=== PATIENT | male | born 1950 | race Caucasian/White ===

== ENCOUNTER 2020-01-20 14:46 | Emergency (ER) | payer MEDICARE, OTHER ==
[~2020-01-20] VITALS: Ht 185.4 cm; Wt 88.6 kg
[2020-01-20 15:39] LABS: MEAN CORPUSCULAR HEMOGLOBIN 29.3 pg (27.0-33.0); MEAN CORPUSCULAR HGB CONC 33.9 g/dl (32.0-36.5); MEAN CORPUSCULAR VOLUME 86.5 fl (80.0-96.0); RED BLOOD COUNT 2.22 10^6/uL (4.30-6.10)
--- NOTE | 2020-01-20 15:39 | REP ---
PORTABLE CHEST X-RAY: SINGLE VIEW. HISTORY: Syncope/near syncope. No comparison study. FINDINGS: The lungs are well inflated and clear. The pleural angles are sharp. The heart is not enlarged. There is evidence of a small hiatal hernia. Pulmonary vasculature is not increased. No significant bony abnormality. IMPRESSION: Small hiatal hernia suspected. Otherwise no acute disease. Electronically Signed by Brian Ochoa MD 01/20/2020 04:16 P
--- NOTE | 2020-01-20 15:45 | REP ---
CT study of the cervical spine without contrast: History: Injury in a fall. No comparison study. Technique: Helical scanning is acquired and overlapping 2 mm high resolution axial images were generated and reviewed at bone and soft tissue window settings. Coronal and sagittal multiplanar re-formations images are generated. CT findings: There is no evidence of cervical spine element fracture. No skull base fracture is seen. Cervical vertebral body heights are preserved. Alignment is normal. Facet joints are normally aligned bilaterally at each cervical level on multiplanar re-formations images. There is no evidence of intraspinal or paraspinal hematoma. No extra vertebral abnormality is seen. There is a benign hemangioma in the left side of the C7 vertebral body. There are degenerative disc changes at C6-7 C5-6 and to a lesser extent C3-4. Osteoarthritic spurring is seen at the articulation between the dens and the anterior arch of C1. 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 Impression: Degenerative spondylosis changes. Otherwise negative CT study of the cervical spine without contrast. No fracture seen. Electronically Signed by Brian Ochoa MD 01/20/2020 03:37 P
--- NOTE | 2020-01-20 15:46 | REP ---
CT BRAIN WITHOUT CONTRAST: HISTORY: Injury in a fall. 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 Bone window settings demonstrate an intact bony calvarium. Visualized paranasal sinuses are clear. No intraorbital abnormality is appreciated. On soft tissue window settings, the lateral, third, and fourth ventricles are normal in size and position. Main-white differentiation pattern is normal above and below the tentorium. There is no evidence of intracranial hemorrhage. No extra-axial fluid collection is seen. No mass, edema or midline shift is observed. IMPRESSION: No evidence of infarct, mass, or hemorrhage. No skull fracture or intracranial injury seen. Electronically Signed by Brian Ochoa MD 01/20/2020 04:17 P
[2020-01-20 16:02] LABS: INR 1.16; PARTIAL THROMBOPLASTIN TIME 33.3 SECONDS (25.0-38.4); PROTHROMBIN TIME 14.5 SECONDS (11.8-14.0)
[2020-01-20 16:06] LABS: HEMATOCRIT 19.2 % (42.0-52.0); WHITE BLOOD COUNT 143.6 10^3/uL (4.0-10.0)
[2020-01-20 16:14] LABS: ALBUMIN 3.4 GM/DL (3.2-5.2); ALT/SGPT 24 U/L (12-78); BILIRUBIN,DIRECT 0.1 MG/DL (0.0-0.2); BILIRUBIN,TOTAL 0.4 MG/DL (0.2-1.0); BLOOD UREA NITROGEN 19 MG/DL (7-18); CALCIUM LEVEL 8.3 MG/DL (8.8-10.2); CARBON DIOXIDE LEVEL 27 MEQ/L (21-32); CHLORIDE LEVEL 107 MEQ/L (98-107); CK-MB VALUE MASS < 1.0 NG/ML (<3.6); CPK CREATINE PHOSPHOKINASE 334 U/L (39-308); CREATININE FOR GFR 1.39 MG/DL (0.70-1.30); GLOMERULAR FILTRATION RATE 54.3 (>49); GLUCOSE, FASTING 139 MG/DL (70-100); SODIUM LEVEL 141 MEQ/L (136-145); TOTAL PROTEIN 6.2 GM/DL (6.4-8.2); TROPONIN I < 0.02 NG/ML (< 0.10)
--- NOTE | 2020-01-20 16:16 | REP ---
RIGHT HAND SERIES: Four views. Four views right hand performed. No acute fracture or dislocation is seen. There is mild narrowing, subchondral sclerosis and spurring at joint between the trapezium and base of 1st metacarpal. There is mild narrowing of the 1st metacarpophalangeal joint. There is mild diffuse narrowing of the interphalangeal joints. There is mild spurring at the base of the distal phalanges. IMPRESSION: Mild diffuse degenerative changes. No evidence of fracture or dislocation. Electronically Signed by Juan Main MD 01/20/2020 05:12 P
[2020-01-20 16:21] LABS: HEMOGLOBIN 6.5 g/dl (13.5-17.5)
[2020-01-20 16:22] LABS: PLATELET COUNT, AUTOMATED 6 10^3/uL (150-450)
[2020-01-20 16:35] LABS: ATYPICAL LYMPH 5 % (0-5); BLAST CELLS 72 % (0-0); LYMPHOCYTES 20 % (16-44); MONOCYTES 2 % (0-5); NEUTROPHILS 1 % (28-66)
[2020-01-20 16:36] LABS: PLATELET ESTIMATE MARKED DECREASE (NORMAL); SMUDGE CELLS 2+
[2020-01-20] MEDS ORDERED: SIMV40TA20 (17:25)
[2020-01-20] MEDS ORDERED: CARV25TA (17:25)
--- NOTE | 2020-01-20 17:55 | ECGEPIP ---
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
[2020-01-20 18:23] VITALS: BP 164/82
== END 2020-01-20 18:27 | disposition short-term general hospital (02) ==
LOC: M ED 14:46 → EDBD 14:46 → M ED 18:27
DX: C95.00 Acute leukemia of unspecified cell type not having achieved remission (principal); I10 Essential (primary) hypertension; E78.00 Pure hypercholesterolemia, unspecified; Z88.0 Allergy status to penicillin; Z79.899 Other long term (current) drug therapy